=== PATIENT | female | born 1950 | race Caucasian/White ===

== ENCOUNTER 2017-03-09 11:58 | Inpatient (IN) | payer OTHER ==
[~2017-03-09] VITALS: Ht 160 cm; Wt 48.2 kg
[~2017-03-09 11:58] MED LIST: ALPRAZOLAM; ANTIVERT25 MG PO; ASPIR-LOW81 MG PO; CARBIDOPA/LEVO1 EACH PO; CELEXA; DAILY VALUE1 EACH PO; EFFEXOR XR150 MG PO; FLEXERIL; FLONASE16 G1 BOTH NARES; FOLIC ACID1 MG PO; HYDROCODONE; IBUPROFEN600 MG PO; LISINOPRIL5 MG PO; LYRICA; MOTRIN600 MG PO; NAPROSYN250 MG PO; PROTONIX40 MG PO; SKELAXIN; VENLAFAXINE HC150 M1 PO; ZOCOR80 MG PO; ZOFRAN4 MG PO
[2017-03-09 12:50] LABS: ADD MIUA? YES; BILIRUBIN NEGATIVE; BLOOD NEGATIVE; COLOR AMBER ((YELLOW)); GLUCOSE (STRIP) NEGATIVE; KETONES 5; LEUKOCYTES NEGATIVE; NITRITE NEGATIVE; PROTEIN (STRIP) NEGATIVE; SPECIFIC GRAVITY 1.021 (1.000-1.030)
[2017-03-09 12:55] LABS: EOSINOPHIL (%) 0 % (0-5); IMMATURE GRANULOCYTE (%) 0.4 % (0.0-0.7); INSTRUMENT ABS NEUTROPHIL CT 7.6 K/uL; LYMPHOCYTE COUNT 0.4 K/uL (1.0-2.8); MCH 28.3 PG (29.0-34.0); MCHC 30.8 G/DL (30.0-36.0); MCV 91.8 FL (83-99); MONOCYTE (%) 4.5 % (3-12); MONOCYTE COUNT 0.4 K/uL (0-0.8); NEUTROPHIL COUNT 7.6 K/uL (1.8-6.4); PLATELET COUNT 276 K/uL (156-360); RBC DIS.WIDTH-CV 13.3 % (11.8-14.6); RBC DIS.WIDTH-SD 45.3 % (39-53); RED BLOOD COUNT 3.92 M/uL (3.80-5.20); WHITE BLOOD COUNT 8.5 K/uL (4.1-10.2)
[2017-03-09 13:07] LABS: CHLORIDE 114 mEq/L (99-109); POTASSIUM 3.3 mEq/L (3.7-5.4); SODIUM 154 mEq/L (136-147)
[2017-03-09 13:08] LABS: MAGNESIUM 2.2 mg/dL (1.3-2.7)
[2017-03-09 13:09] LABS: GLUCOSE 141 mg/dL (70-99)
[2017-03-09 13:11] LABS: ANION GAP 14 MEQ/L (2-14); TOTAL BILIRUBIN 0.3 mg/dL (0.0-1.0)
[2017-03-09 13:13] LABS: ALKALINE PHOSPHATASE 51 IU/L (3-129); GFR ESTIMATE (CALCULATED) 52 mL/min/
[2017-03-09 13:14] LABS: UREA NITROGEN (BUN) 50 mg/dL (9-23)
[2017-03-09 13:16] LABS: CREATINE KINASE 395 IU/L (1-294); TOTAL CK 395 IU/L (1-294); TROP-I INTERPRETATION NEGATIVE; TROPONIN-I 0.06 ng/mL (0.0-0.30)
[2017-03-09 13:19] LABS: BACTERIA 3+ /HPF; EPITHELIAL CELLS NONE SEEN /HPF; HYALINE CASTS 15-20 /LPF; MUCUS 1+ /LPF; RED BLOOD CELLS 0-5 /HPF (0-5); UCUL ADDED? YES; WHITE BLOOD CELLS 0-5 /HPF (0-5)
[2017-03-09 13:22] LABS: CK-MB 1.6 ng/mL (0.0-4.9)
[2017-03-09] MEDS ORDERED: DONEPEZIL HCL5 MG PO (14:26)
[2017-03-09] MEDS ORDERED: LISINOPRIL10 MG PO (14:28)
[2017-03-09] MEDS ORDERED: MIRALAX17 GM PO (14:28)
[2017-03-09] MEDS ORDERED: MIRTAZAPINE7.5 MG PO (14:34)
[2017-03-09] MEDS ORDERED: RISPERDAL0.5 MG PO (14:35)
[2017-03-09] MEDS ORDERED: RISPERIDONE1 MG PO (14:35)
[2017-03-09] MEDS ORDERED: XARELTO20 MG PO (14:36)
[2017-03-09] MEDS ORDERED: SINEMET 10-1001 EACH PO (14:37)
[2017-03-09] MEDS ORDERED: DULCOLAX10 MG PR (14:39)
[2017-03-09] MEDS ORDERED: FLEET ENEMA-AD118 ML PR (14:39)
[2017-03-09] MEDS ORDERED: MILK OF MAGN PO (14:40)
[2017-03-09] MEDS ORDERED: TYLENOL REGULA325 MG PO (14:40)
[2017-03-09 17:59] VITALS: BP 102/55
[2017-03-09 19:30] VITALS: BP 94/58
[2017-03-09 22:44] VITALS: BP 97/55
[2017-03-10 03:36] VITALS: BP 99/57
[2017-03-10 05:49] LABS: EOSINOPHIL (%) 0 % (0-5); HEMATOCRIT 36.3 % (36.0-46.0); IMMATURE GRANULOCYTE (%) 0.3 % (0.0-0.7); LYMPHOCYTE COUNT 0.6 K/uL (1.0-2.8); MCH 28.6 PG (29.0-34.0); MCV 95.3 FL (83-99); MEAN PLAT.VOLUME 10.2 uM^3 (9.5-12.4); MONOCYTE (%) 5.4 % (3-12); MONOCYTE COUNT 0.4 K/uL (0-0.8); NEUTROPHIL (%) 85.1 % (45-76); PLATELET COUNT 240 K/uL (156-360); RBC DIS.WIDTH-CV 13.6 % (11.8-14.6); RED BLOOD COUNT 3.81 M/uL (3.80-5.20); WHITE BLOOD COUNT 7.1 K/uL (4.1-10.2)
[2017-03-10 06:27] LABS: ANION GAP 8 MEQ/L (2-14); CHLORIDE 120 MEQ/L (99-109); GFR ESTIMATE (CALCULATED) > 59 mL/min/; GLUCOSE 151 mg/dL (70-99); POTASSIUM 3.9 MEQ/L (3.7-5.4); SAMPLE HEMOLYSIS CHECK 0; SAMPLE ICTERIC CHECK 0; SAMPLE LIPEMIA CHECK 0; SODIUM 157 MEQ/L (136-147); UREA NITROGEN (BUN) 31 mg/dL (9-23)
[2017-03-10 07:32] VITALS: BP 104/58
[2017-03-10 11:39] VITALS: BP 109/70
[2017-03-10 16:45] VITALS: BP 100/55
[2017-03-10 20:08] VITALS: BP 132/68
[2017-03-11 00:14] VITALS: BP 120/61
[2017-03-11 06:11] LABS: EOSINOPHIL (%) 1.1 % (0-5); EOSINOPHIL COUNT 0.1 K/uL (0-0.3); IMMATURE GRANULOCYTE (%) 0.5 % (0.0-0.7); INSTRUMENT ABS NEUTROPHIL CT 5.4 K/uL; LYMPHOCYTE COUNT 0.8 K/uL (1.0-2.8); MCH 29.3 PG (29.0-34.0); MCHC 30.6 G/DL (30.0-36.0); MCV 95.5 FL (83-99); MEAN PLAT.VOLUME 10.2 uM^3 (9.5-12.4); MONOCYTE (%) 5.4 % (3-12); MONOCYTE COUNT 0.4 K/uL (0-0.8); NEUTROPHIL COUNT 5.4 K/uL (1.8-6.4); PLATELET COUNT 213 K/uL (156-360); RBC DIS.WIDTH-CV 13.3 % (11.8-14.6); RBC DIS.WIDTH-SD 46.9 % (39-53); RED BLOOD COUNT 3.35 M/uL (3.80-5.20); WHITE BLOOD COUNT 6.6 K/uL (4.1-10.2)
[2017-03-11 06:43] LABS: ANION GAP 9 MEQ/L (2-14); CHLORIDE 120 MEQ/L (99-109); GFR ESTIMATE (CALCULATED) > 59 mL/min/; GLUCOSE 148 mg/dL (70-99); POTASSIUM 3.2 MEQ/L (3.7-5.4); SAMPLE HEMOLYSIS CHECK 0; SAMPLE ICTERIC CHECK 0; SAMPLE LIPEMIA CHECK 0; SODIUM 156 MEQ/L (136-147); UREA NITROGEN (BUN) 19 mg/dL (9-23)
[2017-03-11 07:37] VITALS: BP 125/64; BP 1252/64
[2017-03-15] VITALS: BP 100/56
== END 2017-03-15 16:49 | disposition hospice, home (50) | DRG 189 ==
LOC: EME 11:58 → 5EAST 15:15 → EDOF 15:15 → ENRESERV 15:28 → 5EAST 17:30
PROVIDERS: Emergency Medicine; Internal Medicine
DX: J96.01 Acute respiratory failure with hypoxia (principal); K52.9 Noninfective gastroenteritis and colitis, unspecified; J69.0 Pneumonitis due to inhalation of food and vomit; F01.50 Vascular dementia, unspecified severity, without behavioral disturbance, psychotic disturbance, mood disturbance, and anxiety; E87.6 Hypokalemia; E87.0 Hyperosmolality and hypernatremia; Z66 Do not resuscitate; Z86.718 Personal history of other venous thrombosis and embolism; Z51.5 Encounter for palliative care; E86.0 Dehydration; I10 Essential (primary) hypertension; I73.9 Peripheral vascular disease, unspecified; N28.9 Disorder of kidney and ureter, unspecified; G20 Parkinson's disease; R26.9 Unspecified abnormalities of gait and mobility; F02.80 Dementia in other diseases classified elsewhere, unspecified severity, without behavioral disturbance, psychotic disturbance, mood disturbance, and anxiety; E78.5 Hyperlipidemia, unspecified; M19.90 Unspecified osteoarthritis, unspecified site; N39.0 Urinary tract infection, site not specified; F41.9 Anxiety disorder, unspecified; F32.9 Major depressive disorder, single episode, unspecified; Z88.2 Allergy status to sulfonamides; Z87.891 Personal history of nicotine dependence; Z86.73 Personal history of transient ischemic attack (TIA), and cerebral infarction without residual deficits; Z74.01 Bed confinement status; Z68.1 Body mass index [BMI] 19.9 or less, adult
CPT/HCPCS: 70450; 71010; 80048; 80053; 81003; 82550; 82553; 83605; 83735; 84484; 85025; 87040; 87077; 87086; 87186; 87502; 93005; 94760; 94799; 99202; 99281; 99285; J1650; J2060; J2270; J2543; J3480; J7030; J7050